=== PATIENT | female | born 1965 | race Caucasian/White ===

== ENCOUNTER 2017-01-28 17:22 | Inpatient (IN) | payer OTHER ==
[~2017-01-28] VITALS: Ht 160 cm; Wt 65.8 kg
[~2017-01-28 17:22] MED LIST: BACL10TA4 PO; CLIN-187 PO; HYDR2TAB6 PO; LAC PO; LORA-476 PO; OXYC40TE66 PO; [UNRECOGNIZED DRUG - CODE] SC
[2017-01-28 17:31] VITALS: BP 118/76
[2017-01-28 18:00] LABS: APPEARANCE,URINE HAZY (CLEAR); BILIRUBIN,URINE 1+ (NEGATIVE); BLOOD, URINE 1+ (NEGATIVE); LEUKOCYTE ESTERASE ,URINE 1+ (NEGATIVE); NITRITE, URINE NEGATIVE (NEGATIVE); PH,URINE 8.5 (5.0-9.0); UGLUCOSE NEGATIVE (NEGATIVE)
--- NOTE | 2017-01-28 18:00 | NUR ---
51/F BIB MOTHER PRESENT TO ER C/O ABDOMINAL PAIN x TODAY @ 0630. PT HAS N/V BUT DENIES DIARRHEA OR CONSTIPATION. PAIN 10/10 SHARP RLQ RADIATING TO UMBILICAL AREA. SKIN IS PINK/WARM/DRY; AOX4 WITH EVEN AND STEADY GAIT; RR ARE EVEN AND UNLABORED; VSS; PATIENT POSITIONED FOR COMFORT; HOB ELEVATED; BED DOWN. ER MD MADE AWARE OF PT STATUS.
[2017-01-28 18:02] LABS: COLOR,URINE YELLOW (YELLOW)
[2017-01-28 18:02] LABS: BASOPHILS # (AUTO) 0.3 K/uL (0.00-0.22); HEMATOCRIT 43.5 % (36-48); HEMOGLOBIN 14.8 g/dL (12.0-16.0); LYMPHOCYTES # (AUTO) 1.1 K/uL (2.5-16.5); MEAN CORPUSCULAR HEMOGLOBIN 31 pg (27-31); MEAN CORPUSCULAR HGB CONC 34 g/dL (33-37); MEAN CORPUSCULAR VOLUME 91 fL (80-94); MONOCYTES # (AUTO) 0.3 K/uL (0.8-1.0); NEUTROPHILS # (AUTO) 7.4 K/uL (1.8-7.7); PLATELET COUNT (AUTO) 257 K/uL (140-450); RED CELL DISTRIBUTION WIDTH 12.8 % (11.6-13.7); WHITE BLOOD COUNT (AUTO) 9.1 K/uL (4.8-10.8)
[2017-01-28 18:11] LABS: RBC,URINE 0-5 (RARE) /HPF (0-5)
[2017-01-28 18:12] LABS: ANION GAP 12.9 (8-16); CARBON DIOXIDE 25.5 mmol/L (21-32); CREATININE 1.1 mg/dL (0.6-1.3); POTASSIUM 4.4 mmol/L (3.5-5.1)
[2017-01-28 18:18] LABS: ALBUMIN 4.3 g/dL (3.4-5.0)
[2017-01-28] MEDS ORDERED: MORPHINE SULFATE 4 MG/ML SYR IVP ONE ×3 (18:35→22:55)
[2017-01-28] MEDS ORDERED: ONDANSETRON 4 MG/2 ML VIAL IVP ONE (18:35)
[2017-01-28] MEDS ORDERED: NACL 0.9% 1,000 ML IV ONE (18:35)
--- NOTE | 2017-01-28 19:18 | NUR ---
Pt report given to Raissa VENTURA. Transfer of care at this time.
--- NOTE | 2017-01-28 19:20 | NUR ---
RECEIVED REPORT FROM AM SHIFT, PT IS AOX4, VSS, NO S/S OF DISTRESS, C/O ABDOMINAL PAIN 8/10W, RASHES ON LEFT HAND, ER MD MADE AWARE, WILL CONTINUE TO MONITOR.
[2017-01-28] MEDS ORDERED: diphenhydrAMINE 50 MG/ML VIAL IVP ONE ×2 (19:40→23:10)
--- NOTE | 2017-01-28 20:43 | NUR ---
Patient being taken to US via wheelchair per tech.
--- NOTE | 2017-01-28 21:24 | NUR ---
Patient back from US via wheelchair per tech.
[2017-01-29] VITALS (7 sets, daily range): BP systolic 102–130; BP diastolic 71–90
--- NOTE | 2017-01-29 00:15 | NUR ---
REPORT GIVEN TO LORENZO BRISCOE, PT WILL TRANSFER TO ROOM 111B.
--- NOTE | 2017-01-29 00:30 | NUR ---
PT ARRIVED VIA GURNEY FROM ER. PT IS AAOX4, ON ROOM AIR. BELONGINGS WITH HER AT THE BEDSIDE. IV ACCESS IS PATENT AND ASYMPTOMATIC. AMBULATORY WITH BATHROOM PRIVILEGES. NO SIGNS OF ACUTE DISTRESS. PLAN OF CARE DISCUSSED, PT VERBALIZED UNDERSTANDING. BED ON LOW POSITION, BILATERAL HALF SIDE RAILS UP, CALL LIGHT WITHIN REACH, WILL CONTINUE TO MONITOR.
--- NOTE | 2017-01-29 01:45 | NUR ---
DR. SKAGGS PAGED TO ASK FOR NEW MEDICATION ORDERS. PT CURRENTLY HAS NO PENDING OR ACTIVE ORDERS. WILL AWAIT CALLBACK.
--- NOTE | 2017-01-29 01:55 | NUR ---
DR. SOL CALLED BACK. PER DR SOL NEW ORDERS FOLLOWS: NPO, DILAUDID 1 MG Q4H PRN, BENADRYL 25 MG Q6H PRN, RADIOLOGY TO DRAIN LYMPHOCELE, NO SCD NEEDED. NOTED, WILL CARRY OUT.
[2017-01-29] MEDS: HYDROmorphone 1 MG/ML AMP IVP PRN ×5 (02:50→19:42)
--- NOTE | 2017-01-29 04:10 | NUR ---
PT IS AWAKE, RESTING IN BED. NO SIGNS OF ACUTE DISTRESS, BED ON LOW POSITION, BILATERAL HALF SIDE RAILS UP, CALL LIGHT WITHIN REACH, WILL CONTINUE TO MONITOR.
--- NOTE | 2017-01-29 05:50 | NUR ---
PT IS AWAKE, RESTING IN BED. BED ON LOW POSITION, BILATERAL HALF SIDE RAILS UP, CALL LIGHT WITHIN REACH, WILL CONTINUE TO MONITOR.
--- NOTE | 2017-01-29 06:30 | NUR ---
DR SOL CALLED BACK. NEW ORDERS RECEIVED. D51/2NS 65 ML/HR, LABS. NOTED, WILL CARRY OUT.
[2017-01-29] MEDS: DEXT 5% / NACL 0.45% 1,000 ML IV SCH ×2 (06:50→22:14)
--- NOTE | 2017-01-29 07:00 | NUR ---
PATIENT HAS BEEN SCREENED AND CATEGORIZED LOW NUTRITION RISK. PATIENT WILL BE SEEN WITHIN 7 DAYS OF ADMISSION. 02/03/17 ABHI FLEMING MS, RDN
--- NOTE | 2017-01-29 07:35 | NUR ---
ENDORSED PT TO AM NURSE. PT IN STABLE CONDITION.
--- NOTE | 2017-01-29 07:40 | NUR ---
RECEIVED PT REPORT AT BEDSIDE FROM NIGHT NURSE. PT IS AAOX4 AND SHOWS NO S/S OF ACUTE DISTRESS ON ROOM AIR. PT SKIN IS INTACT. IV NOTED ON THE L AC WITH IVF'S INFUSING WELL. PT STATES SHE WAS ALREADY GIVEN PAIN MEDICATION THAT WAS EFFECTIVE. ON TELE MONITOR. PT WAS EXPLAINED POC FOR TODAY AND VERBALIZED UNDERSTANDING. THE BED IS IN LOW POSITION WITH CALL LIGHT WITHIN REACH. WILL CONTINUE TO MONITOR.
[2017-01-29 08:12] LABS: HEMATOCRIT 40.7 % (36-48); HEMOGLOBIN 13.4 g/dL (12.0-16.0); MEAN CORPUSCULAR HEMOGLOBIN 31 pg (27-31); MEAN CORPUSCULAR HGB CONC 33 g/dL (33-37); MEAN CORPUSCULAR VOLUME 93 fL (80-94); PLATELET COUNT (AUTO) 208 K/uL (140-450); RED BLOOD CELL COUNT(AUTO) 4.36 MIL/uL (4.20-5.40); RED CELL DISTRIBUTION WIDTH 12.8 % (11.6-13.7); WHITE BLOOD COUNT (AUTO) 14.4 K/uL (4.8-10.8)
[2017-01-29 08:20] LABS: PROTHROMBIN TIME 10.6 secs (10.8-13.4)
[2017-01-29 08:23] LABS: LYMPHOCYTES % (MANUAL) 10 % (20-46); MONOCYTES % (MANUAL) 4 % (5-12)
[2017-01-29] MEDS ORDERED: LORazepam 1 MG TAB PO SCH (09:50)
[2017-01-29] MEDS ORDERED: oxyCODONE 40 MG TABER PO PRN (09:50)
[2017-01-29] MEDS: diphenhydrAMINE 50 MG/ML VIAL IVP PRN (09:51)
[2017-01-29] MEDS: ONDANSETRON 4 MG/2 ML VIAL IVP PRN ×2 (09:57→15:48)
--- NOTE | 2017-01-29 10:00 | NUR ---
ADMINISTERED PRN MEDICATIONS FOR ITCHINESS AND NAUSEA. PT TOLERATED WELL IVF'S INFUSING. BED IS LOW POSITION WITH CALL LIGHT WITHIN REACH. ALL NEEDS MET AT THIS TIME.
[2017-01-29] MEDS ORDERED: LORazepam 1 MG TAB PO PRN (11:05)
[2017-01-29] MEDS: PIPER/TAZO 3.375GM/D5W PREMIX 50 ML IV SCH ×3 (11:15→23:47)
--- NOTE | 2017-01-29 11:25 | NUR ---
ADMINISTERED SCHEDULED MEDICATIONS AND PRN PAIN MEDICATION DILAUDID 1 MG IVP FOR RLQ ABD PAIN. WILL REASSESS FOR PAIN IN 30 MIN.
[2017-01-29] MEDS: metroNIDAZOLE 500 MG TAB PO SCH ×2 (12:44→18:17)
--- NOTE | 2017-01-29 13:30 | NUR ---
PT WATCHING TV AND SHOWS NO S/S OF ACUTE DISTRESS AT THIS TIME. WILL CONTINUE TO MONITOR.
--- NOTE | 2017-01-29 15:25 | NUR ---
ADMINISTERED DILAUDID 1 MG IVP FOR 8/10 RLQ ABD PAIN. WILL REASSESS IN 30 MIN.
--- NOTE | 2017-01-29 15:55 | NUR ---
PT STATES TOLERABLE PAIN OF 6/10 ABD PAIN. PT'S NEED MET AT THIS TIME. WILL CONTINUE TO MONITOR.
--- NOTE | 2017-01-29 18:00 | NUR ---
ADMINISTERED SCHEDULED MEDICATIONS. PT TOLERATED WELL. IV ABX INFUSING WELL. BED IN LOW POSITION WITH CALL LIGHT WITHIN REACH. PT C/O PAIN AND ASKED FOR NEXT AVAILABLE TIME FOR PRN PAIN MEDICATION. PT IS AWARE NEXT DOSE AT 1925.
--- NOTE | 2017-01-29 19:20 | NUR ---
GAVE PT REPORT AT BEDSIDE TO NIGHT NURSE. PT ENDORSED IN STABLE CONDITION
--- NOTE | 2017-01-29 19:40 | NUR ---
RECEIVED PT IN STABLE CONDITION FROM AM NURSE FOR CONTINUITY OF CARE. AWAKE,ALERT AND ORIENTED X4. ON TELE MONITOR-SR. AMBULATORY. WITH IVF INFUSING WELL ON THE LT AC #20. CLEAR AND PATENT. PLAN OF CARE DISCUSSED AND VERBALIZED UNDERSTANDING. WITH C/O LOWER ABDOMINAL PAIN. WILL MEDICATE ORDERED. CALL LIGHT PLACED WITHIN EASY REACH. WILL CONTINUE TO MONITOR.
--- NOTE | 2017-01-29 20:12 | NUR ---
PT SAID SHE FEELS OK RIGHT NOW AFTER THE PAIN MEDICATION GIVEN EARLIER. WILL CONTINUE TO MONITOR.
[2017-01-29] MEDS: DOXYCYCLINE 100 MG CAP PO SCH (21:00)
--- NOTE | 2017-01-29 21:00 | NUR ---
AWAKE, NO C/O ANY PAIN AT THIS TIME. VIBRAMYCIN PO NOT GIVEN FOR SHE SIAD SHE MIGHT VOMIT. WILL TRY LATER WHEN READY AND NOT NAUSEATED.
--- NOTE | 2017-01-29 23:00 | NUR ---
MADE ROUNDS. STILL AWAKE. DENIES ANY DISCOMFORT/PAIN NOTED. WILL CONTINUE TO MONITOR.
--- NOTE | 2017-01-30 00:30 | NUR ---
STILL KEPT NPO ORDERED. IVF INFUSING WELL.
--- NOTE | 2017-01-30 02:02 | NUR ---
MADE ROUNDS. AWAKE. SHE SAID PAIN IS BETTER. WILL CONTINUE TO MONITOR. Addendum: 01/31/17 at 0202 by Johanny Peralta RN CANCEL ABOVE NOTES. CAREGIVER MISTAKE.
--- NOTE | 2017-01-30 02:20 | NUR ---
MADE ROUNDS. PT IS SLEEPING WELL. NO S/S OF ANY DISCOMFORT NOTED.
[2017-01-30 02:36] VITALS: BP 104/71
[2017-01-30] MEDS: HYDROmorphone 1 MG/ML AMP IVP PRN ×5 (02:38→22:32)
[2017-01-30] MEDS: diphenhydrAMINE 50 MG/ML VIAL IVP PRN ×2 (04:08→19:44)
--- NOTE | 2017-01-30 04:08 | NUR ---
C/O ITCHING MOSTLY ON BOTH ARMS. . MEDICATED WITH BENADRYL IVP ORDERED.
[2017-01-30] MEDS: PIPER/TAZO 3.375GM/D5W PREMIX 50 ML IV SCH ×4 (05:36→23:34)
[2017-01-30] MEDS: DEXT 5% / NACL 0.45% 1,000 ML IV SCH ×3 (05:36→23:38)
--- NOTE | 2017-01-30 06:00 | NUR ---
BLOOD WAS DRAWN THIS AM. WILL FOLLOW UP RESULT.
[2017-01-30 06:14] LABS: BASOPHILS # (AUTO) 0.4 K/uL (0.00-0.22); BASOPHILS % (AUTO) 4.7 % (0.0-2.0); EOSINOPHILS # (AUTO) 0.1 K/uL (0-0.4); EOSINOPHILS % (AUTO) 1.5 % (0.0-4.0); HEMOGLOBIN 11.9 g/dL (12.0-16.0); LYMPHOCYTES # (AUTO) 2.2 K/uL (2.5-16.5); LYMPHOCYTES % (AUTO) 26.7 % (20.5-51.1); MEAN CORPUSCULAR HEMOGLOBIN 31 pg (27-31); MEAN CORPUSCULAR HGB CONC 33 g/dL (33-37); MEAN CORPUSCULAR VOLUME 93 fL (80-94); MONOCYTES # (AUTO) 0.8 K/uL (0.8-1.0); MONOCYTES % (AUTO) 9.1 % (1.7-9.3); NEUTROPHILS # (AUTO) 4.8 K/uL (1.8-7.7); PLATELET COUNT (AUTO) 181 K/uL (140-450); RED BLOOD CELL COUNT(AUTO) 3.87 MIL/uL (4.20-5.40); RED CELL DISTRIBUTION WIDTH 12.6 % (11.6-13.7); WHITE BLOOD COUNT (AUTO) 8.3 K/uL (4.8-10.8)
[2017-01-30 06:58] LABS: ANION GAP 8.4 (8-16); CARBON DIOXIDE 27.1 mmol/L (21-32); CREATININE 1.1 mg/dL (0.6-1.3); POTASSIUM 3.5 mmol/L (3.5-5.1); TOTAL BILIRUBIN 0.8 mg/dL (0.0-1.0)
--- NOTE | 2017-01-30 07:22 | NUR ---
ENDORSED PT IN STABLE CONDITION TO AM NURSE FOR CONTINUITY OF CARE.
--- NOTE | 2017-01-30 07:25 | NUR ---
RECEIVED PT REPORT AT BEDSIDE FROM NIGHT NURSE. PT IS AAOX4 AND SHOWS NO S/S OF ACUTE DISTRESS ON ROOM AIR. PT SKIN IS INTACT. IV NOTED ON THE L AC SL AND R FA WITH IVF'S INFUSING WELL. PT STATES 7/10 ABD PAIN HOWEVER BP WAS LOW AT 92/55 HR 90 WILL REASSESS. PT AWARE UNABLE TO GIVE PRN PAIN MEDICATION AT THIS TIME. ON TELE MONITOR. PT WAS EXPLAINED POC FOR TODAY AND VERBALIZED UNDERSTANDING. THE BED IS IN LOW POSITION WITH CALL LIGHT WITHIN REACH. WILL CONTINUE TO MONITOR.
[2017-01-30 08:00] VITALS: BP 92/55
--- NOTE | 2017-01-30 09:30 | NUR ---
PT BP IS 108/75 HR 75. PT DENIES SOB, DIZZINESS, AND FATIGUE. PT CONTINUE TO ASK FOR PAIN MEDICATIONS. WILL ADMINISTER PRN PAIN MEDICATION DILAUDID 1 MG IVP.
[2017-01-30] MEDS: DOXYCYCLINE 100 MG CAP PO SCH ×2 (09:48→20:41)
[2017-01-30] MEDS: metroNIDAZOLE 500 MG TAB PO SCH ×3 (09:48→16:38)
[2017-01-30] MEDS: ONDANSETRON 4 MG/2 ML VIAL IVP PRN ×2 (09:48→16:38)
--- NOTE | 2017-01-30 09:55 | NUR ---
ADMINISTERED SCHEDULED MEDICATIONS WELL PRN MEDICATIONS FOR NAUSEA AND PAIN. PT C/O NAUSEA AND RLQ ABD PAIN 10/25. WILL REASSESS IN 30 MIN.
[2017-01-30] MEDS: ENOXAPARIN 40 MG/0.4 ML SYR SUBQ SCH (10:01)
--- NOTE | 2017-01-30 10:34 | NUR ---
PT STATES TOLERABLE PAIN OF 6/10 AT THE RLQ ABD. PT'S NEEDS MET AT THIS TIME. WILL CONTINUE TO MONITOR.
[2017-01-30 12:00] VITALS: BP 103/70
--- NOTE | 2017-01-30 12:09 | NUR ---
ADMINISTERED SCHEDULED MEDICATIONS. PT TOLERATED WELL. IV ABX INFUSING WELL. ALL NEEDS MET AT THIS TIME. WILL CONTINUE TO MONITOR.
[2017-01-30 16:00] VITALS: BP 99/66
--- NOTE | 2017-01-30 17:00 | NUR ---
PT SEEN BY DR POOL
--- NOTE | 2017-01-30 18:15 | NUR ---
ADMINISTERED SCHEDULED MEDICATIONS AND DILAUDID 1 MG IVP FOR 8/10 RLQ ABD PAIN. WILL REASSESS IN 30 MIN.
--- NOTE | 2017-01-30 18:45 | NUR ---
PT STATES TOLERABLE PAIN OF 6/10 RLQ PAIN.
--- NOTE | 2017-01-30 19:10 | NUR ---
GAVE REPORT TO NIGHT NURSE AT BEDSIDE. PT ENDORSED IN STABLE CONDITION.
--- NOTE | 2017-01-30 19:20 | NUR ---
RECEIVED PT IN STABLE CONDITION FROM AM NURSE. AWAKE, ALERT AND ORIENTED X4. MED SURG PT. WITH NO DISTRESS NOTED. FAMILY MEMBERS AT BEDSIDE. NO C/O PAIN NOTED AT THIS TIME. HAS IVF INFUSING WELL ON THE RT FA#22, CLEAR AND PATENT. PLAN OF CARE DISCUSSED AND VERBALIZED UNDERSTANDING. CALL LIGHT PLACED WITHIN EASY REACH. WILL CONTINUE TO MONITOR.
--- NOTE | 2017-01-30 19:44 | NUR ---
C/O ITCHING ALL OVER THE BODY. BENADRYL IVP GIVEN ORDERED ,PRN. WILL CONTINUE TO MONITOR.
--- NOTE | 2017-01-30 20:41 | NUR ---
TOOK PO VIBRAMYCIN ORDERED. NO C/O PAIN AT THIS TIME.
[2017-01-30 22:29] VITALS: BP 105/75
--- NOTE | 2017-01-30 22:35 | NUR ---
C/O ABDOMINAL PAIN. MEDICATED ORDERED. WILL CONTINUE TO MONITOR.
--- NOTE | 2017-01-30 23:05 | NUR ---
AWAKE,PT SAID PAIN IS BETTER. IT IS NOW TOLERABLE. WILL CONTINUE TO MONITOR.
[2017-01-31] VITALS: BP 101/68
--- NOTE | 2017-01-31 02:00 | NUR ---
MADE ROUNDS . PT IS ASLEEP. NO S/S OF ANY DISCOMFORT NOR PAIN NOTED.
[2017-01-31 03:01] VITALS: BP 104/85
[2017-01-31] MEDS: HYDROmorphone 1 MG/ML AMP IVP PRN ×5 (03:03→21:00)
--- NOTE | 2017-01-31 04:10 | NUR ---
ASLEEP . WITH NO S/S DISCOMFORT NOR PAIN NOTED. WILL CONTINUE TO MONITOR.
[2017-01-31] MEDS: DEXT 5% / NACL 0.45% 1,000 ML IV SCH ×2 (05:02→20:26)
[2017-01-31] MEDS: PIPER/TAZO 3.375GM/D5W PREMIX 50 ML IV SCH ×4 (05:21→23:07)
[2017-01-31] MEDS: diphenhydrAMINE 50 MG/ML VIAL IVP PRN ×2 (06:06→18:55)
--- NOTE | 2017-01-31 06:06 | NUR ---
C/O ITCHING AGAIN . MEDICATED ORDERED. WILL CONTINUE TO MONITOR.
[2017-01-31 06:16] LABS: ANION GAP 9.7 (8-16); CARBON DIOXIDE 26.9 mmol/L (21-32); CREATININE 1.2 mg/dL (0.6-1.3); POTASSIUM 3.6 mmol/L (3.5-5.1)
[2017-01-31 06:29] LABS: HEMATOCRIT 36.2 % (36-48); HEMOGLOBIN 11.8 g/dL (12.0-16.0); MEAN CORPUSCULAR HEMOGLOBIN 31 pg (27-31); MEAN CORPUSCULAR HGB CONC 33 g/dL (33-37); MEAN CORPUSCULAR VOLUME 94 fL (80-94); PLATELET COUNT (AUTO) 169 K/uL (140-450); RED BLOOD CELL COUNT(AUTO) 3.86 MIL/uL (4.20-5.40); RED CELL DISTRIBUTION WIDTH 12.7 % (11.6-13.7); WHITE BLOOD COUNT (AUTO) 5.9 K/uL (4.8-10.8)
--- NOTE | 2017-01-31 07:25 | NUR ---
ENDORSED PT IN STABLE CONDITION TO AM NURSE FOR CONTINUITY OF CARE.
--- NOTE | 2017-01-31 07:30 | NUR ---
RECEIVED REPORT FROM REAL ESTATE MANAGER NURSE, PT IS RESTING IN BED, SEMI FOWLERS POSITION, A/OX4, AMBULATORY, PT HAS IV ON THE RIGHT FA, PATENT, INTACT, FLUSHING WELL, SKIN IS INTACT, NO S/S OF RESPIRATORY DISTRESS OR DISCOMFORT NOTED, DISCUSSED PLAN OF CARE WITH PT, PT VERBALIZED UNDERSTANDING, SAFETY/FALL PRECAUTIONS ARE IN PLACE, CALL LIGHT IS WITHIN REACH, WILL CONTINUE TO MONITOR.
[2017-01-31 07:34] LABS: EOSINOPHILS % (MANUAL) 1 % (0-4); LYMPHOCYTES % (MANUAL) 31 % (20-46); MONOCYTES % (MANUAL) 3 % (5-12)
[2017-01-31 08:00] VITALS: BP 97/60
[2017-01-31] MEDS: metroNIDAZOLE 500 MG TAB PO SCH ×3 (08:43→17:05)
[2017-01-31] MEDS: DOXYCYCLINE 100 MG CAP PO SCH ×2 (08:44→21:00)
[2017-01-31] MEDS: ENOXAPARIN 40 MG/0.4 ML SYR SUBQ SCH (08:52)
--- NOTE | 2017-01-31 08:52 | NUR ---
DUE MEDICATIONS GIVEN, PT TOLERATED WELL, ALL NEEDS ARE MET AT THIS TIME, CALL LIGHT IS WITHIN REACH.
--- NOTE | 2017-01-31 09:30 | NUR ---
DR. SKAGGS AT PATIENT'S BEDSIDE TALKING WITH PT.
[2017-01-31] MEDS: ONDANSETRON 4 MG/2 ML VIAL IVP PRN (09:46)
--- NOTE | 2017-01-31 11:48 | NUR ---
CM NOTE INITIAL REVIEW FAXED TO [facility] / FAX# [phone], ATTN: KEITH #[phone]
--- NOTE | 2017-01-31 12:14 | NUR ---
PT RESTING IN BED, DUE MEDICATION GIVEN, CALL LIGHT WITHIN REACH.
--- NOTE | 2017-01-31 14:35 | NUR ---
PT IN THE SHOWERS AT THIS TIME.
--- NOTE | 2017-01-31 15:10 | NUR ---
PATIENT IS RESTING IN BED AT THIS TIME, ALL NEEDS ARE MET, CALL LIGHT WITHIN REACH.
[2017-01-31 16:00] VITALS: BP 104/68
--- NOTE | 2017-01-31 16:37 | NUR ---
CM NOTE SPOKE W/ AB GILL FOR [facility] ([phone] [id number]) RE. POSSIBLE TRANSFER TO HIGHER LEVEL OF CARE. UPON HER REVIEW AND IF THIS IS NOT AN EMERGENT TRANSFER, SHE RECOMMENDS PATIENT TO FOLLOW UP OUTPATIENT. PATIENT ALREADY FOLLOWS UP W/ SCARLETT COLLINS AND DOES CA TREATMENT & PAIN MANAGEMENT AT [facility]. MADE CM AWARE THAT JESUS WILL BE CM TOMORROW. SCOT VALLAADRES MADE AWARE OF INSURANCE'S DECISION.
--- NOTE | 2017-01-31 17:05 | NUR ---
DUE MEDICATIONS GIVEN, PT COMPLAINED OF A 8/10 ABDOMINAL PAIN. WILL MEDICATE WITH PRN PAIN MEDICATION AT THIS TIME.
--- NOTE | 2017-01-31 19:20 | NUR ---
ENDORSED PT TO FIBERGLASS LAMINATOR NURSE FOR CONTINUITY OF CARE, PT STABLE AT THIS TIME.
--- NOTE | 2017-01-31 19:22 | NUR ---
RECEIVED PT ON BED, AAOX4, DENIES ANY PAIN, NO N/V NOTED, IVF INFUSING WELL, PLAN OF CARE DISCUSSED, AWARE OF TRANSFER TO HIGHER LEVEL OF CARE, OSTEOPATHIC PHYSICIAN TO ARRANGED, CALL LIGHT WITHIN REACH.
--- NOTE | 2017-01-31 21:00 | NUR ---
MEDICATED PRN FOR PAIN WITH DILAUDID IVP, DUE PO MEDICATION GIVEN, ALL NEEDS ATTENDED.
[2017-02-01] VITALS: BP 98/60
--- NOTE | 2017-02-01 | NUR ---
PT SLEEPING, EASILY AROUSABLE, DENIES ANY PAIN, IV ANTIBIOTIC INFUSING WELL, CONTINUE TO MONITOR CLOSELY.
--- NOTE | 2017-02-01 01:00 | NUR ---
PT AWAKE ASKING FOR PAIN MEDICATION, RECHECKED BP-90/61, TOO LOW TO GIVE DILAUDID AT THIS TIME, VERBALIZED UNDERSTANDING, WILL RECHECKED BP IN 30 MINUTES, MONITORED CLOSELY.
--- NOTE | 2017-02-01 01:30 | NUR ---
BP RECHECKED-92/58, STILL TOO LOW FOR DILAUDID TO GIVE, VERBALIZED UNDERSTANDING, WILL MONITOR CLOSELY.
[2017-02-01] MEDS: ONDANSETRON 4 MG/2 ML VIAL IVP PRN ×3 (02:26→21:19)
--- NOTE | 2017-02-01 02:35 | NUR ---
PT COMPLAINING OF NAUSEA, NO VOMITING NOTED, MEDICATED WITH ZOFRAN IVP, MONITORED CLOSELY.
--- NOTE | 2017-02-01 03:08 | NUR ---
PT SLEEPING, NO DISTRESS NOTED, REPORT GIVEN TO RN SALVATORE FOR CONTINUITY OF CARE.
--- NOTE | 2017-02-01 03:10 | NUR ---
RECEIVED FROM PREVIOUS RN AWAKE AT THIS TIME. RE-ORIENTED TO NEW NURSE ASSIGNMENT. A/O X 4. ROM X 4. SEEN INDEPENDENTLY WALKED BACK FROM RESTROOM TO GO URINATE. RE-ORIENTED TO CALL LIGHT FOR ANY HELP SHE MAY NEED. NO SOB AND NO PAIN COMPLAINTS WITH ME AT THIS TIME. IVF SITE PATENT AND NO INFILTRATION.
--- NOTE | 2017-02-01 04:05 | NUR ---
SLEEPING AT THIS TIME. CALL LIGHT WITH IN REACH.
[2017-02-01] MEDS: DEXT 5% / NACL 0.45% 1,000 ML IV SCH (05:20)
[2017-02-01 05:30] VITALS: BP 98/68
[2017-02-01] MEDS: PIPER/TAZO 3.375GM/D5W PREMIX 50 ML IV SCH ×3 (05:35→17:09)
--- NOTE | 2017-02-01 06:49 | NUR ---
AWAKE AT THIS TIME. VITAL SIGNS WNL. WENT TO RESTROOM . INDEPENDENT. AFEBRILE. PAIN TOLERABLE PER PT. A/O X 4. ROM X 4. CLEAR SPEECH. FOR TRANSFER PLANS TO HIGHER LEVEL OF CARE.
--- NOTE | 2017-02-01 07:28 | NUR ---
RECEIVED PT IN BED ASLEEP. AROUSABLE TO VOICE. ALERT ORIENTEDX4. NO SOB NOTED. PT COMPLAINED OF ABDOMINAL PAIN. WILL CHECK VITAL SIGNS AND MEDICATE ORDERED. PT AMBULATORY. SAFETY PRECAUTION IN PLACE. CALL LIGHT WITHIN TEACH.
--- NOTE | 2017-02-01 07:31 | NUR ---
ENDORSED TO THE NEXT RN FOR CONTINUITY OF CARE. AWAKE AND ALERT. NO SOB. DENIES PAIN . ABLE TO VERBALIZE NEEDS WELL.
[2017-02-01 07:48] VITALS: BP 103/60
[2017-02-01] MEDS: metroNIDAZOLE 500 MG TAB PO SCH ×3 (08:19→16:26)
[2017-02-01] MEDS: DOXYCYCLINE 100 MG CAP PO SCH ×2 (08:19→20:49)
[2017-02-01] MEDS: HYDROmorphone 1 MG/ML AMP IVP PRN ×4 (08:20→20:49)
[2017-02-01] MEDS: ENOXAPARIN 40 MG/0.4 ML SYR SUBQ SCH (08:28)
--- NOTE | 2017-02-01 10:10 | NUR ---
CONCURRENT REVIEW FAXED TO [facility] [phone] PHONE JAIRO [phone] [id number] SPOKE WITH ABOUT TRANSFER. HE SAID THAT ACCORDING TO DR POOL PATIENT NEEDS HIGHER LEVEL OF CARE. DR. SKAGGS SAID THAT DR POOL WAS GOING TO SPEAK WITH A PHYSICIAN FROM [facility] THAT ALSO GOES TO [facility]. I SPOKE WITH JAIRO FROM [facility] [place] TOLD HER THAT DR. SKAGGS SAID IF PATIENT GOES TO [facility], [facility] COULD BE THE ADMITTING. I CALLED DR. OROZCO TO FIND OUT WHAT PHYSICIAN HE SPOKE WITH FROM [facility] THAT ALSO GOES TO [facility]. HE SAID HE DIDN'T REMEMBER THE NAME BUT WOULD CALL HIM WHEN HE GET TO HIS OFFICE. Addendum: 02/01/17 at 1358 by Cait Sanchez FAXED TO [facility].
[2017-02-01 10:24] LABS: BASOPHILS # (AUTO) 0.3 K/uL (0.00-0.22); BASOPHILS % (AUTO) 3.8 % (0.0-2.0); EOSINOPHILS # (AUTO) 0.1 K/uL (0-0.4); EOSINOPHILS % (AUTO) 1.5 % (0.0-4.0); HEMOGLOBIN 11.5 g/dL (12.0-16.0); LYMPHOCYTES # (AUTO) 1.2 K/uL (2.5-16.5); LYMPHOCYTES % (AUTO) 13.9 % (20.5-51.1); MEAN CORPUSCULAR HEMOGLOBIN 31 pg (27-31); MEAN CORPUSCULAR HGB CONC 33 g/dL (33-37); MEAN CORPUSCULAR VOLUME 93 fL (80-94); MONOCYTES # (AUTO) 0.5 K/uL (0.8-1.0); MONOCYTES % (AUTO) 6.1 % (1.7-9.3); NEUTROPHILS # (AUTO) 6.7 K/uL (1.8-7.7); NEUTROPHILS % (AUTO) 74.7 % (42.2-75.2); PLATELET COUNT (AUTO) 187 K/uL (140-450); RED BLOOD CELL COUNT(AUTO) 3.76 MIL/uL (4.20-5.40); RED CELL DISTRIBUTION WIDTH 13.2 % (11.6-13.7); WHITE BLOOD COUNT (AUTO) 8.8 K/uL (4.8-10.8)
[2017-02-01 12:00] VITALS: BP 100/73
--- NOTE | 2017-02-01 12:38 | NUR ---
PT IV LINE IS LEAKING. NO REDNESS OR INFILTRATION NOTED ON SITE BUT LEAKING WAS NOTED CLOSE TO IV CANNULA. PT REQUESTED TO REINSERT A NEW IV LINE AFTER SHE EATS HER LUNCH.
--- NOTE | 2017-02-01 13:00 | NUR ---
IV SITE CHECKED FOR PATENCY. IV LINE FLUSHED AND FLUSHING GOOD. NO LEAKING NOTED. CHANGED IV LINE TAPE. SECURED. STARTED IVF.
--- NOTE | 2017-02-01 13:58 | NUR ---
SPOKE WITH JAIRO PALACIOS FROM [facility]. SHE SAID THAT AT [facility], THEY HAVE A OB/GYNE ONCOLOGY SURGEON, DR. KELIN SMITH [phone]. ALSO THEIR HOSPITALIST AT [facility] IS DR. AVERY FOR ADMIT. I SPOKE WITH THE PATIENT AND SHE SAID THAT SHE SAW AN OB/GYNE IN WHO REFERRED HER TO THE [facility] IN [facility] FOR A PET SCAN. SHE SAID SHE NEVER WENT THERE, BECAUSE SHE BECAME ILL. THE NAME OF THE OF/GYNE IS DR. VIRI HEARN. I SPOKE WITH JAIRO FROM [facility] AND SHE SAID SHE WILL CALL DR. SKAGGS AND SEE IF HE COULD CALL THE HOSPITALIST, DR. AVERY TO SEE IF SHE WOULD ACCEPT THE PATIENT FOR TRANSFER AND THEM TO GET THE PROPER CONSULT THERE.
--- NOTE | 2017-02-01 14:38 | NUR ---
CLARIFIED WITH DR. SKAGGS REGARDING ORDERED US GUIDED DRAINAGE FOR TODAY, PER RADIOLOGY DEPT, THAT WAS ALREADY ORDERED LAST JAN 28, 2017 BUT WASN'T ABLE TO DO PROCEDURE DUE TO BOWEL/INTESTINE SURROUNDING AREA OF CONCER. RECEIVED ORDER FROM DR. SKAGGS TO CANCEL ORDER. AND CLARIFIED REGARDING ORDER FOR US PELVIC TRANSVAGINAL NON OB, PER RADIOLOGY DEPT IT WAS ALREADY DONE LAST JAN 28, 2017, PER DR. SKAGGS HE WANTS A NEW ONE. CALLED RADIOLOGY DEPT SPOKE WITH ANITRA AND MADE AWARE. RADIOLOGY DEPT STAFF WILL COME AND SEE PT.
--- NOTE | 2017-02-01 15:22 | NUR ---
SPOKE WITH JAIRO FROM [facility][phone] [id number]. SHE SAID SHE SPOKE WITH DR. SKAGGS AND HE WAS TO SPEAK WITH THE HOSPITALIST, DR. CHAVARRIA TO INFORM HER WHAT THIS PATIENT NEEDED. JAIRO GAVE ME THE AUTHS. AUTH FOR [facility] [id number]. THE AUTH FOR [facility] B[facility] TRANSFER IS [id number]. Addendum: 02/01/17 at 1541 by Cait Sanchez CM CALLED [facility] AND SPOKE WITH KARLIE IN ADMITTING. HE SAID THE PATIENT HAS BEEN ACCEPTED BY DR. CHAVARRIA, JUST WAITING FOR A BED. I GAVE HIM THE PHONE NUMBER TO THE FLOOR TO CALL WHEN THEY GET A BED.
[2017-02-01] MEDS ORDERED: DOXY100C12 PO (15:35)
[2017-02-01 16:00] VITALS: BP 104/62
--- NOTE | 2017-02-01 18:00 | NUR ---
EXPLAINED TO PT REGARDING TRANSFER TO HIGHER LEVEL OF CARE FOR FURTHER ASSESSMENT/TREATMENT. PT VERBALIZED UNDERSTANDING AND SIGNED PT TRANSFER ACKNOWLEDGEMENT FORM. FORM IN TO CHART.
--- NOTE | 2017-02-01 19:21 | NUR ---
AWAITING FOR BED AT [facility]. PT KEPT CLEAN, DRY AND COMFORTABLE. NEEDS ATTENDED. ENDORSED TO NEXT SHIFT, PT ON STABLE CONDITION, FOR CONTINUITY OF CARE.
--- NOTE | 2017-02-01 19:22 | NUR ---
RECEIVED PT FROM DAY NURSE, PT IS IN STABLE CONDITION. PT AAOX4, PT IS ON RA. IV TO R FA 22G PATENT AND INTACT. RESPIRATIONS ARE EVEN AND UNLABORED. BOWEL SOUNDS PRESENT. SKIN IS INTACT. INITIAL ASSESSMENT COMPLETED PLAN OF CARE DISCUSSED WITH PT. PT VERBALIZED UNDERSTANDING. ALL SAFETY PRECAUTIONS MET, CALL LIGHT WITHIN REACH, WILL CONTINUE TO MONITOR.
--- NOTE | 2017-02-01 21:19 | NUR ---
PT VOMITING, ZOFRAN GIVEN BY CHARGE NURSE ROSS
[2017-02-02] VITALS: BP 113/64
--- NOTE | 2017-02-02 | NUR ---
PT VS STABLE, NO S/S OF DISTRESS NOTED. ALL SAFETY PRECAUTIONS MET, CALL LIGHT WITHIN REACH, WILL CONTINUE TO MONITOR.
[2017-02-02] MEDS: PIPER/TAZO 3.375GM/D5W PREMIX 50 ML IV SCH ×4 (00:07→17:14)
[2017-02-02] MEDS: DEXT 5% / NACL 0.45% 1,000 ML IV SCH ×3 (01:41→20:01)
[2017-02-02] MEDS: diphenhydrAMINE 50 MG/ML VIAL IVP PRN (01:48)
[2017-02-02] MEDS: HYDROmorphone 1 MG/ML AMP IVP PRN ×5 (04:36→21:26)
[2017-02-02] MEDS: ONDANSETRON 4 MG/2 ML VIAL IVP PRN ×2 (04:49→17:12)
--- NOTE | 2017-02-02 05:00 | NUR ---
CALLED [facility] TO FOLLOW UP BED AVAILABILITY FOR TRANSFER, SPOKE TO MARYBETH AND SAID STILL NO BED AVAILABLE AT THIS TIME, LORENZO ROA MADE AWARE.
--- NOTE | 2017-02-02 07:20 | NUR ---
PT REPORT RECEIVED AT BEDSIDE. PT IS IN STABLE CONDITION. NO S/S OF DISTRESS NOTED. PT C/O PAIN AT LOWER ABD, 11/25. WILL MEDICATE. VITALS ARE STABLE. IV NOTED ON THE RIGHT FA #22. SKIN INTACT. BED LOWERED. PERSONAL ITEMS AND CALL LIGHT WITHIN REACH.
--- NOTE | 2017-02-02 07:26 | NUR ---
GAVE REPORT TO DAY NURSE AT BEDSIDE FOR CONTINUITY PT IN STABLE CONDITION, NO S/S OF DISTRESS NOTED.
[2017-02-02 08:06] VITALS: BP 122/75
[2017-02-02] MEDS: metroNIDAZOLE 500 MG TAB PO SCH ×3 (08:45→17:12)
[2017-02-02] MEDS: DOXYCYCLINE 100 MG CAP PO SCH ×2 (08:45→20:45)
[2017-02-02] MEDS: ENOXAPARIN 40 MG/0.4 ML SYR SUBQ SCH (08:50)
--- NOTE | 2017-02-02 08:58 | NUR ---
MEDICATION AND INSTRUCTION GIVEN. PT VERBALIZED UNDERSTANDING. WILL CONTINUE TO MONITOR.
--- NOTE | 2017-02-02 09:20 | NUR ---
[place] [facility] [phone] PHONE KEITH [phone] CALLED [facility] AND SPOKE WITH DAYANARA. NO BED YET. THEY HAVE THE PATIENT ON THE LIST.
--- NOTE | 2017-02-02 13:40 | NUR ---
PT RESTING IN BED. PT STATED SHE FELT BETTER THAN BEFORE. PAIN REDUCED TO 4/10. PT REQUESTED SODA.
--- NOTE | 2017-02-02 15:58 | NUR ---
SPOKE WITH KEITH FROM [facility]. SHE ALSO CALLED [facility] FOR A BED. AT PRESENT NO BEDS. I TOLD KEITH THAT IF A BED BECOMES AVAILABLE TO CALL THE FLOOR AT [phone].
[2017-02-02 16:00] VITALS: BP 110/70
--- NOTE | 2017-02-02 17:00 | NUR ---
PT FELT NAUSEATED AND VOMITED. WHITE EMESIS ABOUT 30ML. MEDICATED WITH ZOFRAN. WILL CONTINUE TO MONITOR.
--- NOTE | 2017-02-02 18:45 | NUR ---
PT VOMITED AFTER EATING DINNER. 100ML EMESIS WITH FOOD. CALLED DR. MARTINEZ WHO ORDERED REGLAN.
--- NOTE | 2017-02-02 19:16 | NUR ---
ENDORSED PT TO EFFICIENCY EXPERT, PT REPORT GIVEN AT BEDSIDE. PT IS IN STABLE CONDITION. NO S/S OF ACUTE DISTRESS NOTED.
--- NOTE | 2017-02-02 19:45 | NUR ---
RECEIVED PT IN STABLE CONDITION FROM AM NURSE. AWAKE,ALERT AND ORIENTED X4. MED SURG PT. AMBULATORY . WITH IVF INFUSING WELL ON THE RT FA #22. CLEAR AND PATENT. NO C/O PAIN AT THIS TIME. AWAITING FOR BED IN [facility] . PLAN OF CARE DISCUSSED AND VERBALIZED UNDERSTANDING. CALL LIGHT PLACED WITHIN EASY REACH. WILL CONTINUE TO MONITOR.
[2017-02-02] MEDS: METOCLOPRAMIDE 10 MG/2 ML INJ VIAL IVP PRN (20:07)
--- NOTE | 2017-02-02 20:07 | NUR ---
C/O NAUSEA. REGLAN IVP GIVEN ORDERED. WILL CONTINUE TO MONITOR.
[2017-02-02 21:24] VITALS: BP 116/71
--- NOTE | 2017-02-02 21:56 | NUR ---
MADE ROUNDS. AWAKE, SHE SAID NO MORE PAIN AT THIS TIME. WILL CONTINUE TO MONITOR.
[2017-02-03] VITALS: BP 101/68
--- NOTE | 2017-02-03 00:42 | NUR ---
PAGED DR. SKAGGS FOR RENEWAL ORDER OF ZOSYN IVPB AND VIBRAMYCIN AND FLAGYL PO . DR. MARTINEZ INFORMATION MANAGER. CALLED BACK AND SHE SAID OK TO RENEW.
--- NOTE | 2017-02-03 01:30 | NUR ---
STILL NO CALL FROM [facility] FOR ANY BED AVAILABILITY. WILL CONTINUE TO WAIT FOR BED.
--- NOTE | 2017-02-03 02:00 | NUR ---
MADE ROUNDS. PT IS ASLEEP AT THIS TIME. NO S/S OF ANY DISCOMFORT NOR PAIN NOTED .
--- NOTE | 2017-02-03 04:25 | NUR ---
MADE ROUNDS. ASLEEP WITH NO S/S OF ANY AIN OR DISCOMFORT NOTED. WILL CONTINUE TO MONITOR.
[2017-02-03] MEDS: PIPER/TAZO 3.375GM/D5W PREMIX 50 ML IV SCH ×2 (05:40→12:23)
[2017-02-03 05:52] VITALS: BP 128/75
[2017-02-03] MEDS: HYDROmorphone 1 MG/ML AMP IVP PRN ×5 (05:59→22:19)
[2017-02-03] MEDS: METOCLOPRAMIDE 10 MG/2 ML INJ VIAL IVP PRN ×2 (06:05→11:08)
--- NOTE | 2017-02-03 06:05 | NUR ---
PT VOMITED AGAIN .WITH WHITISH LIQUID. MEDICATED WITH REGLAN 1O MG IVP ORDERED PRN. WILL CONTINUE TO MONITOR.
[2017-02-03 06:49] LABS: HEMATOCRIT 36.2 % (36-48); HEMOGLOBIN 11.9 g/dL (12.0-16.0); MEAN CORPUSCULAR HEMOGLOBIN 31 pg (27-31); MEAN CORPUSCULAR HGB CONC 33 g/dL (33-37); MEAN CORPUSCULAR VOLUME 93 fL (80-94); PLATELET COUNT (AUTO) 176 K/uL (140-450); RED CELL DISTRIBUTION WIDTH 12.9 % (11.6-13.7); WHITE BLOOD COUNT (AUTO) 6.8 K/uL (4.8-10.8)
--- NOTE | 2017-02-03 07:20 | NUR ---
ENDORSED PT IN STABLE CONDITION TO AM NURSE FOR CONTINUITY OF CARE.
[2017-02-03 07:21] LABS: EOSINOPHILS % (MANUAL) 4 % (0-4); LYMPHOCYTES % (MANUAL) 34 % (20-46); MONOCYTES % (MANUAL) 10 % (5-12)
--- NOTE | 2017-02-03 07:34 | NUR ---
REPORT RECEIVED FROM PREVOCATIONAL/REHABILITATION COUNSELOR NURSE, PT AAOX4, RESP EVEN UNLABORED ON RA, SKIN WARM DRY COLOR WNL, PT DENIES PAIN OR DISCOMFORT OR NAUSEA AT THIS TIME, PLAN OF CARE REVIEWED, PT VERBALIZED FULL UNDERSTANDING, CALL CÁRDENAS WITHIN REACH, SIDE RAILS UP, BED LOCKED IN LOW POSITION, WILL CONTINUE TO MONITOR.
[2017-02-03 08:00] VITALS: BP 108/64
[2017-02-03] MEDS: metroNIDAZOLE 500 MG TAB PO SCH ×2 (09:00→12:26)
[2017-02-03] MEDS: ONDANSETRON 4 MG/2 ML VIAL IVP PRN ×2 (09:02→20:21)
[2017-02-03] MEDS: DOXYCYCLINE 100 MG CAP PO SCH ×2 (09:07→20:22)
[2017-02-03] MEDS: ENOXAPARIN 40 MG/0.4 ML SYR SUBQ SCH (09:09)
--- NOTE | 2017-02-03 09:13 | NUR ---
EMESIS X1, PRN ZOFRAN GIVEN AT THIS TIME, PT REPORTS MID RIGTH ABD PAIN /10, PT UNABLE TO TAKE PRN OXYCONTIN PO DUE TO N/V AT THIS TIME, LAST DOSE OF DILAUDID IV GIVEN AT 6AM, PT STATES PAIN IS TOLERABLE AT THIS TIME UNTIL NEXT DOSE OF DILAUDID CAN BE ADMINISTERED. ABD SOFT, TENDER TO PALP, NON DISTENDED, WILL CONTINUE TO MONTIOR.
[2017-02-03] MEDS: DEXT 5% / NACL 0.45% 1,000 ML IV SCH (10:32)
--- NOTE | 2017-02-03 11:13 | NUR ---
PT C/O NAUSEA/VOMITING AGAIN, EMESIS X1, PRN REGLAN GIVEN AT THIS TIME, WILL CONTINUE TO MONTIOR.
--- NOTE | 2017-02-03 11:50 | NUR ---
CM NOTE CONCURRENT REVIEW FAXED TO [facility] / FAX# [phone], ATTN: KEITH #[phone] PER KEITH PAUL WILL BE HAVING A BED AVAILABLE SOMETIME TODAY; UNKNOWN ETA AT THIS TIME.
[2017-02-03] MEDS ORDERED: PROCHLORPERAZINE 10 MG/2 ML VIAL IVP PRN (11:55)
--- NOTE | 2017-02-03 12:00 | NUR ---
PT WILL WITH NAUSEA AND VOMITING, EMESIS X2, NON BLOODY, PT KEEPS DRINKING SODA AND WATER WHILE NAUSEATED, PT ENCOURAGED TO HOLD PO INTAKE FOR NOW UNTIL NAUSEA SUBSIDES, DR SKAGGS PAGED, AND CALLED BACK, NOTIFIED OF MULTIPLE VOMITING THIS AM DESPITE 2 DOSES OF REGLAN, AND 1 DOSE OF ZOFRAN, DR SKAGGS MADE AWARE THAT PT CAN'T TOLERATE PO ANTIBIOTICS THIS AM, COMPAZINE ORDER RECEIVED, ALSO ORDER FOR BOOST WITH EACH MEAL RECOMMENDED BY NUTRITIONINST.
--- NOTE | 2017-02-03 13:20 | NUR ---
DR SKAGGS AT BEDSIDE
--- NOTE | 2017-02-03 13:40 | NUR ---
02/03/17 RD INITIAL ASSESSMENT COMPLETED PLEASE REFER TO NUTRITION ASSESSMENT UNDER CARE ACTIVITY FOR ESTIMATED NUTRITIONAL NEEDS. RD RECOMMENDATIONS: 1.CONTINUE REGULAR DIET MEDICALLY APPROPRIATE OR PER MD. -NOTE PT HAS BEEN NAUSEOUS AND VOMTING THE PAST 2 DAYS WITH VERY LITTLE TO NO PO INTAKE. 2. RECOMMEND ADDING BOOST PLUS TID WITH MEALS FOR ADDITIONAL KCAL AND PROTEIN REPLETION -NOTE EACH BOOST PLUS PROVIDES 360 KCAL AND 14 GM OF PROTEIN. 3. RD WILL F/U 2-3 DAYS; HIGH RISK. MONICA PETER, RD
--- NOTE | 2017-02-03 14:50 | NUR ---
PT STATES PAIN IS NOW SUBSIDED AND TOLERABLE, STATES NAUSEA HAS ALSO SUBSIDED, PT RESTING QUIETLY IN NAD, RESP EVEN UNLABORED, SKIN WARM DRY COLOR WNL, PT DENIES ANY IMMEDIATE NEEDS, TAKING SIPS OF LEMON SODA, [place] WELL. CALL CÁRDENAS WITHIN REACH, SIDE RAILS UP, WILL CONTINUE TO MONTIOR.
[2017-02-03 16:00] VITALS: BP 120/71
--- NOTE | 2017-02-03 17:05 | NUR ---
RIGHT FOREARM WITH SLIGHT SWELLING, STATES IV SITE IS TENDER TO TOUCH, NEW IV STARTED TO LEFT FOREARM 22G, PT [place] WELL, IVF CONTINUES. PT STATES SHE IS TILL SLIGHTLY NAUSEOUS BUT TOLERABLE, NO C/O PAIN, PT DENIES ANY OTHER NEEDS, WILL CONTINUE TO MONTIOR.
--- NOTE | 2017-02-03 19:25 | NUR ---
REPORT GIVEN TO DEVOPS CONSULTANT NURSE LESLEE RN, PT IN STABLE CONDITION.
--- NOTE | 2017-02-03 19:26 | NUR ---
RECEIVED PT FROM RALPH RN PT IS AAOX4 AMBULATORY IV ON LEFT FA INFUSIGN WELL DENIES ANY PAIN AT THIS TIME INITIAL ASSESSMENT DONE
[2017-02-03 20:00] VITALS: BP 114/74
--- NOTE | 2017-02-03 22:50 | NUR ---
AFTER PAIN MEDIC GIVEN PT SLEEPS QUIET , NOT DISTRESS NOTED IV ON LEFT FA INFUSING WELL
[2017-02-04 00:02] VITALS: BP 126/77
--- NOTE | 2017-02-04 01:00 | NUR ---
PT AMBULATES TO THE RESTROOM VOIDING WELL NOT DISTRESS NOTED REMAIN STABLE
--- NOTE | 2017-02-04 04:09 | NUR ---
SPONGE BATH GIVEN LINEN CHANGED AMBULATES T THE RESTROOM VOIDING WELL DENIES ANY PAIN OR DISCOMFORT AT THIS TIME.
[2017-02-04] MEDS: ONDANSETRON 4 MG/2 ML VIAL IVP PRN ×2 (05:03→11:12)
[2017-02-04] MEDS: HYDROmorphone 1 MG/ML AMP IVP PRN ×4 (05:06→16:54)
[2017-02-04] MEDS: DEXT 5% / NACL 0.45% 1,000 ML IV SCH (05:10)
--- NOTE | 2017-02-04 06:40 | NUR ---
AFTER PAIN MEDIC GIVING PT SLEEPING WELL NOT DISTRESS NOTED NOT N/V NOTED
--- NOTE | 2017-02-04 07:15 | NUR ---
RECEIVED REPORT FROM DIRECTOR COUNSELING BUREAU RN. PATIENT IS AAOX4, RESPIRATIONS ARE EVEN AND UNLABORED AND ON ROOM AIR. PATIENT DENIES ANY PAIN OR DISCOMFORT AT THIS TIME. D5NS INFUSING TO LEFT FOREARM 22G AT 65ML/HR, SITE IS CLEAN, DRY AND PATENT. NO SIGNS AND SYMPTOMS OF ACUTE DISTRESS NOTED AT THIS TIME. BED IS IN LOWEST POSITION, SIDERAILS UP X2, CALL LIGHT PLACED WITHIN REACH. WILL CONTINUE TO MONITOR.
[2017-02-04 08:00] VITALS: BP 114/86
[2017-02-04] MEDS: DOXYCYCLINE 100 MG CAP PO SCH (09:20)
[2017-02-04] MEDS: ENOXAPARIN 40 MG/0.4 ML SYR SUBQ SCH (09:33)
--- NOTE | 2017-02-04 10:00 | NUR ---
PATIENT CONTINUES TO HAVE VOMITING, GAVE DILAUDID EARLIER. NOT DUE FOR ZOFRAN YET, WHICH IS WHAT SHE PREFERS. WILL CONTINUE TO MONITOR.
--- NOTE | 2017-02-04 12:02 | NUR ---
FAXED [place] [facility] [place] [phone] PHONE KEITH [phone] CALLED [facility] AND SPOKE WITH DAYANARA, THEN CALLED LATER AND SPOKE WITH KARLIE. STILL NO BED.
--- NOTE | 2017-02-04 13:41 | NUR ---
CALLED [facility] AND SPOKE WITH KARLIE. STILL WAITING FOR BED. NO BED YET.
[2017-02-04] MEDS ORDERED: ACETAMINOPHEN 325 MG TAB PO PRN (14:10)
--- NOTE | 2017-02-04 14:11 | NUR ---
C/O HEADACHE NOTIFIED DR SKAGGS NEW ORDER CARRIED OUT.
--- NOTE | 2017-02-04 15:56 | NUR ---
I GOT A CALL FROM [facility] THAT BED IS AVAILABLE .PATIENT CAN GO TO ROOM 457B BUT THEY WANTED THE ACCEPTING DR TO CALL THEM FIRST. ACCORDING TO THE SUPERINTENDENT MAINTENANCE [employer] NOTE DR CHAVARRIA IS ACCEPTING DR. EMANUEL SKAGGS AT THIS TIME .
[2017-02-04 16:00] VITALS: BP 128/78
--- NOTE | 2017-02-04 17:10 | NUR ---
CALLED [facility] AND SPOKE WITH LORENZO NEWSOME. GAVE HER REPORT ON THE PATIENT.
--- NOTE | 2017-02-04 17:35 | NUR ---
[facility] HERE TO TRANSPORT PATIENT. GAVE THEM REPORT, PATIENT IS STABLE FOR TRANSPORTATION AT THIS TIME. ALL BELONGINGS ARE WITH HER, IV FLUID DISCONTINUED. IV CLEAN, DRY AND PATENT ON SALINE LOCK. TRANSPORTATION GOWN GIVEN TO PATIENT. ID BAND REMOVED.
== END 2017-02-04 17:35 | disposition short-term general hospital (02) | DRG 872 ==
LOC: MED 17:22 → MTU 23:21
PROVIDERS: ADMIT Hospitalist; ATTEND Hospitalist
DX: A41.9 Sepsis, unspecified organism (principal); C53.9 Malignant neoplasm of cervix uteri, unspecified; M51.36 Other intervertebral disc degeneration, lumbar region; N73.9 Female pelvic inflammatory disease, unspecified; Z90.5 Acquired absence of kidney; Z88.8 Allergy status to other drugs, medicaments and biological substances; Z91.041 Radiographic dye allergy status; Z92.3 Personal history of irradiation; Z92.21 Personal history of antineoplastic chemotherapy; Z86.718 Personal history of other venous thrombosis and embolism; Z87.891 Personal history of nicotine dependence
CPT/HCPCS: 36415; 76830; 80048; 80053; 81001; 83690; 83880; 85025; 85610; 87040; 87081; 87086; 96374; 96375; 96376; 99285; J0780; J1170; J1200; J1650; J2270; J2405; J2543; J2765; J7030; J7042; Q0092

== ENCOUNTER 2017-09-13 13:03 | Inpatient (IN) | payer OTHER ==
[~2017-09-13] VITALS: Ht 167.6 cm; Wt 64.0 kg
[~2017-09-13 13:03] MED LIST changes: -CLIN-187 PO; +DOXY100C12 PO
[2017-09-13 13:34] VITALS: BP 144/90
--- NOTE | 2017-09-13 14:03 | NUR ---
PATIENT AMBULATED TO BED 7.
--- NOTE | 2017-09-13 14:03 | NUR ---
PT AMBULATES WITH NORMAL GAIT TO ER BED 7
--- NOTE | 2017-09-13 14:20 | NUR ---
PT C/O POSSIBLE SZ-LIKE ACTIVIY YESTERDAY AT 1400, WITNESSED BY FAMILY. PER FAMILY, PTS EYES WERE OPEN AND ROLLING BACK IN HEAD, JAW CLENCHED, AND STIFF EXTREMITIES FOR APPROX 35 SECONDS. PT ALSO REPORTS ONE EPISODE OF N/V AFTER THE INCIDENT. DENIES TRUAMA. PT DENIES DIZZINESS OR SOB. HX: LEFT KIDNEY REMOVED DUE TO RADIATION THERAPY, IVC FILTER (LLE DVT), 3 BULDGING DISK, CERVICAL CA STAGE 4 SINCE 2001 IN REMISSION. RX: OXYCONTIN, DILAUDID
[2017-09-13 14:52] LABS: BASOPHILS % (AUTO) 0.2 % (0.0-2.0); EOSINOPHILS # (AUTO) 0.1 K/uL (0-0.4); EOSINOPHILS % (AUTO) 1.2 % (0.0-4.0); HEMATOCRIT 40.1 % (36-48); HEMOGLOBIN 13.2 g/dL (12.0-16.0); LYMPHOCYTES # (AUTO) 2.2 K/uL (2.5-16.5); LYMPHOCYTES % (AUTO) 28.8 % (20.5-51.1); MEAN CORPUSCULAR HEMOGLOBIN 30 pg (27-31); MEAN CORPUSCULAR HGB CONC 33 g/dL (33-37); MEAN CORPUSCULAR VOLUME 92.4 fL (80-94); MONOCYTES # (AUTO) 0.3 K/uL (0.8-1.0); MONOCYTES % (AUTO) 4.5 % (1.7-9.3); NEUTROPHILS # (AUTO) 5.1 K/uL (1.8-7.7); NEUTROPHILS % (AUTO) 65.3 % (42.2-75.2); PLATELET COUNT (AUTO) 217 K/uL (140-450); RED BLOOD CELL COUNT(AUTO) 4.34 MIL/uL (4.20-5.40); RED CELL DISTRIBUTION WIDTH 13.3 % (11.6-13.7); WHITE BLOOD COUNT (AUTO) 7.7 K/uL (4.8-10.8)
[2017-09-13 14:58] LABS: APPEARANCE,URINE CLEAR (CLEAR); BILIRUBIN,URINE NEGATIVE (NEGATIVE); BLOOD, URINE TRACE-L (NEGATIVE); COLOR,URINE YELLOW (YELLOW); LEUKOCYTE ESTERASE ,URINE TRACE (NEGATIVE); NITRITE, URINE NEGATIVE (NEGATIVE); PH,URINE 6.5 (5.0-9.0); UGLUCOSE NEGATIVE (NEGATIVE)
[2017-09-13 15:00] LABS: BARBITURATE, URINE NEG. ng/ml (NEG <=200); BENZODIAZEPINE, URINE NEG. ng/mL (NEG <=200); CANNABINOID, URINE POS. ng/mL (NEG <=50); COCAINE, URINE NEG. ng/mL (NEG <=300); OPIATE, URINE NEG. ng/mL (NEG <=2000); PHENCYCLIDINE SCREEN,URINE NEG. ng/mL (NEG <=25)
[2017-09-13 15:14] LABS: ANION GAP 12.6 (8-16); CARBON DIOXIDE 26.9 mmol/L (21-32); POTASSIUM 4.5 mmol/L (3.5-5.1)
[2017-09-13 15:21] LABS: TOTAL BILIRUBIN 0.6 mg/dL (0.0-1.0)
[2017-09-13 15:24] LABS: RBC,URINE 3-10 (FEW) /HPF (0-5)
--- NOTE | 2017-09-13 15:40 | NUR ---
PT RESTING IN BED IN NO APPARENT DISTRESS. WILL CONTINUE TO MONITOR
[2017-09-13] MEDS ORDERED: LORazepam 2 MG/ML VIAL IVP PRN (16:15)
[2017-09-13] MEDS ORDERED: oxyCODONE 10 MG TABER PO PRN (16:15)
[2017-09-13] MEDS ORDERED: ONDANSETRON 4 MG/2 ML VIAL IVP PRN (16:15)
[2017-09-13] MEDS ORDERED: ACETAMINOPHEN 325 MG TAB PO PRN (16:15)
--- NOTE | 2017-09-13 17:00 | NUR ---
Patient will be admitted to care of DR GLASGOW. Admited to TELE. Will go to room 111A. Belongings list completed. Report to MARIANELA VENTURA .
--- NOTE | 2017-09-13 17:00 | NUR ---
PATIENT ARRIVED ON FLOOR VIA GURNEY, PATIENT AMBULATED TO THE BED ON STEADY GAIT. REPORT RECEIVED FROM SENIOR NET APPLICATION DEVELOPER, LORENZO, AT BEDSIDE FOR CONTINUITY OF CARE. PATIENT AOX4, ABLE TO VERBALIZE NEED. IV SITE PATENT, ASYMPTOMATIC, AND INTACT. PATIENT DIAGNOSED WITH NEWLY ONSET SEIZURES. SON AT BEDSIDE. LUNGS CLEAR, BOWEL SOUNDS PRESENT, PATIENT REPORTS PAIN HEAD AND NECK 5/10. WILL ASSESS AND MEDICATE. ORIENTED PATIENT TO ROOM, CALL LIGHT, AND BATHROOM. MRSA SCREENING DONE, PATIENT CHANGED INTO GOWN AND SOCKS. INITIAL ASSESSMENT DONE. SAFETY AND SEIZURES PRECAUTION IN PLACE, CALL LIGHT WITHIN REACH. WILL CONTINUE TO MONITOR PATIENT.
[2017-09-13 17:50] VITALS: BP 120/70
[2017-09-13] MEDS: NACL 0.9% 1,000 ML IV SCH (18:07)
[2017-09-13] MEDS: MORPHINE SULFATE 2 MG/ML SYR IVP PRN ×2 (18:17→22:40)
--- NOTE | 2017-09-13 18:17 | NUR ---
MORPHINE PRN IVP ADMINISTERED FOR PAIN. WILL REASSESS. PATIENT NOW SITTING IN BED EATING DINNER. SAFETY AND SEIZURE PRECAUTION IN PLACE, CALL LIGHT WITHIN REACH. WILL CONTINUE TO MONITOR PATIENT.
--- NOTE | 2017-09-13 18:20 | NUR ---
NIKKO FROM CARDIOP[facility] CALLED. STAT ORDER OF EEG CANNOT BE PERFORMED TODAY, OUTSIDE GROUP DOES IT, THEY SAID THAT IT WILL BE DONE [id number] TOM[address]ROW ON 09/14/17. DR. GLASGOW PAGED. DR. CASTANEDA CLIENT REPRESENTATIVE. DR. CASTANEDA INFORMED.
--- NOTE | 2017-09-13 19:30 | NUR ---
REPORT GIVEN TO CERTIFIED NURSING ASSISTANT INSTRUCTOR NURSE AT BEDSIDE FOR CONTINUITY OF CARE. PATIENT IN STABLE CONDITION.
--- NOTE | 2017-09-13 19:30 | NUR ---
ASSUMED CARE OF PATIENT, STABLE CONDITION AND NO COMPLAINS. CALL LIGHT WITHIN REACH.
--- NOTE | 2017-09-13 20:00 | NUR ---
VITAL SIGNS STABLE. AFEBRILE. SEIZURE PRECAUTION NOTED, WITH PADDED SIDERAILS ON. CALL LIGHT WITHIN REACH. PLAN OF CARE DISCUSSED WITH PATIENT, VERBALIZED UNDERSTANDING WELL. CALL LIGHT WITHIN REACH.
[2017-09-13 20:07] VITALS: BP 104/68
[2017-09-13] MEDS: OXYCODONE PO SCH ×2 (20:33)
[2017-09-13] MEDS ORDERED: oxyCODONE 40 MG TABER PO SCH (21:00)
--- NOTE | 2017-09-14 | NUR ---
ASLEEP NO COMPLAINS. VITAL SIGNS STABLE. AFEBRILE. CALL LIGHT WITHIN REACH.
[2017-09-14 01:22] VITALS: BP 96/50
[2017-09-14 04:39] VITALS: BP 98/58
--- NOTE | 2017-09-14 04:40 | NUR ---
NO COMPLAINS. VITAL SIGNS STABLE. CALL LIGHT WITHIN REACH. ASLEEP.
[2017-09-14] MEDS: MORPHINE SULFATE 2 MG/ML SYR IVP PRN ×4 (04:49→22:42)
[2017-09-14] MEDS: NACL 0.9% 1,000 ML IV SCH ×2 (06:42→18:54)
--- NOTE | 2017-09-14 07:15 | NUR ---
ENDORSED CARE AT BEDSIDE WITH MARIANELA RN, PATIENT IN STABLE CONDITION.
--- NOTE | 2017-09-14 07:16 | NUR ---
RECEIVED REPORT FROM DETENTION SERGEANT NURSE AT BEDSIDE FOR CONTINUITY OF CARE. PATIENT AOX4, ABLE TO VERBALIZE NEED. IV SITE PATENT, ASYMPTOMATIC, AND INTACT INFUSING NS AT 75 ML/HR. PATIENT REPORTS PAIN HEAD AND NECK 08/25, WILL MEDICATE SCHEDULE PAIN MEDICATION. RESPIRATIONS EVEN AND UNLABORED. UPDATED BOARD. EXPLAINED PLAN OF CARE WITH PATIENT. PATIENT VERBALIZED UNDERSTANDING. SAFETY AND SEIZURES PRECAUTION IN PLACE, CALL LIGHT WITHIN REACH. WILL CONTINUE TO MONITOR PATIENT.
[2017-09-14 07:19] LABS: BASOPHILS % (AUTO) 0.4 % (0.0-2.0); EOSINOPHILS # (AUTO) 0.2 K/uL (0-0.4); EOSINOPHILS % (AUTO) 3.1 % (0.0-4.0); HEMATOCRIT 36.4 % (36-48); HEMOGLOBIN 11.9 g/dL (12.0-16.0); LYMPHOCYTES # (AUTO) 3.1 K/uL (2.5-16.5); LYMPHOCYTES % (AUTO) 48.4 % (20.5-51.1); MEAN CORPUSCULAR HEMOGLOBIN 30 pg (27-31); MEAN CORPUSCULAR HGB CONC 33 g/dL (33-37); MEAN CORPUSCULAR VOLUME 93.2 fL (80-94); MONOCYTES # (AUTO) 0.4 K/uL (0.8-1.0); MONOCYTES % (AUTO) 6.8 % (1.7-9.3); NEUTROPHILS # (AUTO) 2.6 K/uL (1.8-7.7); NEUTROPHILS % (AUTO) 41.3 % (42.2-75.2); PLATELET COUNT (AUTO) 194 K/uL (140-450); RED BLOOD CELL COUNT(AUTO) 3.91 MIL/uL (4.20-5.40); RED CELL DISTRIBUTION WIDTH 13.4 % (11.6-13.7); WHITE BLOOD COUNT (AUTO) 6.4 K/uL (4.8-10.8)
--- NOTE | 2017-09-14 07:45 | NUR ---
[facility] HERE TO DO EEG. WILL AWAIT FOR RESULTS.
[2017-09-14 08:00] VITALS: BP 101/59
[2017-09-14] MEDS ORDERED: oxyCODONE 40 MG TABER PO ONE (08:10)
[2017-09-14 08:20] LABS: ALBUMIN 3.3 g/dL (3.4-5.0); ANION GAP 12.9 (8-16); CREATININE 0.9 mg/dL (0.6-1.3); POTASSIUM 3.9 mmol/L (3.5-5.1)
[2017-09-14 08:36] LABS: TOTAL BILIRUBIN 0.3 mg/dL (0.0-1.0)
[2017-09-14] MEDS: OXYCODONE PO SCH ×4 (08:51→21:13)
[2017-09-14] MEDS: ENOXAPARIN 40 MG/0.4 ML SYR SUBQ SCH (08:54)
--- NOTE | 2017-09-14 08:55 | NUR ---
ORDERED MEDICATIONS ADMINISTERED. PATIENT TOLERATED THEM WELL. BREATHING EVEN AND UNLABORED. PATIENT MEDICATED FOR PAIN. SAFETY AND SEIZURE PRECAUTION IN PLACE, CALL LIGHT WITHIN REACH. WILL CONTINUE TO MONITOR PATIENT.
--- NOTE | 2017-09-14 09:22 | NUR ---
PATIENT HAS BEEN SCREENED AND CATEGORIZED LOW NUTRITION RISK. PATIENT WILL BE SEEN WITHIN 7 DAYS OF ADMISSION. 09/20/[address]
--- NOTE | 2017-09-14 10:35 | NUR ---
DR. GLASGOW IN TO SEE THE PATIENT. PATIENT REQUESTED IF SHE MAY SHOWER. NEW ORDERS IN. INFORMED PATIENT THAT SHE MAY SHOWER. PATIENT VERBALIZED UNDERSTANDING. SAFETY AND SEIZURE PRECAUTION IN PLACE, CALL LIGHT WITHIN REACH. WILL CONTINUE TO MONITOR PATIENT.
--- NOTE | 2017-09-14 10:36 | NUR ---
FAXED INITIAL REVIEW TO [facility] [place] [phone] PHONE KEITH [phone]
--- NOTE | 2017-09-14 11:45 | NUR ---
PATIENT OFF MONITOR TO GO SHOWER. PATIENT AMBULATED TO SHOWER ON STEADY GAIT. RN PROVIDED PATIENT WITH NEW GOWN, TOWELS, SHAMPOO AND LOTION.
[2017-09-14 12:00] VITALS: BP 99/60
--- NOTE | 2017-09-14 12:15 | NUR ---
PATIENT BACK ON MONITOR, PATIENT NOW RESTING IN BED, BREATHING EVEN AND UNLABORED. PATIENT DENIES PAIN. SAFETY PRECAUTIONS IN PLACE, BED ALARM ON, BED IN LOWEST POSITION, CALL LIGHT WITHIN REACH, WILL CONTINUE TO MONITOR PATIENT
--- NOTE | 2017-09-14 12:57 | NUR ---
PATIENT C/O PAIN 7/10 GENERALIZED PAIN. PRN MORPHINE ADMINISTERED. PATIENT TOLERATED IT WELL. PATIENT NOW RESTING IN BED, BREATHING EVEN AND UNLABORED. PATIENT DENIES PAIN. SAFETY PRECAUTIONS IN PLACE, BED ALARM ON, BED IN LOWEST POSITION, CALL LIGHT WITHIN REACH, WILL CONTINUE TO MONITOR PATIENT
--- NOTE | 2017-09-14 14:37 | NUR ---
DR. SANCHEZ IN TO SEE THE PATIENT. THE PATIENT WAS UPSET AFTER THE CONSOLATION AND IN TEARS ABOUT NEW DIAGNOSIS AND ABOUT NOTIFICATION TO DMV, AND NEW SEIZURE MEDICATIONS. RN EXPLAINED AT LENGTH TO PATIENT ABOUT SEIZURE MEDICATIONS, THEIR USE, AND THE DMV NOTIFICATION FOR PATIENT'S SAFETY. PATIENT VERBALIZED UNDERSTANDING AND CALMED DOWN. PATIENT STATED THAT SHE "WILL TRY TO REST NOW", BREATHING EVEN AND UNLABORED. PATIENT DENIES PAIN. SAFETY PRECAUTIONS IN PLACE, CALL LIGHT WITHIN REACH, WILL CONTINUE TO MONITOR PATIENT
[2017-09-14] MEDS ORDERED: OXcarbazepine 150 MG TAB PO SCH (15:15)
[2017-09-14 16:00] VITALS: BP 125/84
--- NOTE | 2017-09-14 16:14 | NUR ---
NEW MEDICATION ORDERS IN FROM DR. SANCHEZ. EDUCATION HANDOUT ABOUT TRIPLETAL GIVEN TO PATIENT FOR HER TO PERUSE. PATIENT VERBALIZED UNDERSTANDING. SHE IS HESITANT TO TAKE THE NEW MEDICATION BUT VERBALIZED UNDERSTANDING THAT IT WAS FOR HER NEWLY ONSET DX OF SEIZURES AND AFTER SPEAKING WITH HER FAMILY, AGREED TO TAKE IT. PATIENT NOW RESTING IN BED, BREATHING EVEN AND UNLABORED. PATIENT STATES THAT PAIN IS TOLERABLE AT THE MOMENT. SAFETY PRECAUTIONS IN PLACE, CALL LIGHT WITHIN REACH, WILL CONTINUE TO MONITOR PATIENT
--- NOTE | 2017-09-14 19:28 | NUR ---
PATIENT REPORT GIVEN TO UNIT TRUST MANAGER NURSE, KIRK, AT BEDSIDE FOR CONTINUITY OF CARE. PATIENT IN STABLE CONDITION.
--- NOTE | 2017-09-14 19:29 | NUR ---
PATIENT REPORT RECEIVED FROM MORNING NURSE AT BEDSIDE. PATIENT IS AWAKE, ALERT AND ORIENTED. AMBULATORY. NO SIGNS AND SYMPTOMS OF DISTRESS NOTED. PATIENT'S IV SITE IS ON THE LEFT ARM, IV INFUSING WELL. PLAN OF CARE DISCUSSED WITH PATIENT. PATIENT VERBALIZED UNDERSTANDING. BED IN LOWEST POSITION, SIDE RAILS UP AND CALL LIGHT WITHIN REACH. WILL CONTINUE TO MONITOR.
[2017-09-14 20:00] VITALS: BP 100/60
--- NOTE | 2017-09-14 21:00 | NUR ---
MEDICATION EDUCATION GIVEN. MEDS ADMINISTERED ORDERED. PATIENT TOLERATED WELL. WILL CONTINUE TO MONITOR.
[2017-09-14] MEDS: OXcarbazepine 150 MG TAB PO SCH (21:14)
[2017-09-15] VITALS: BP 104/65
--- NOTE | 2017-09-15 | NUR ---
PATIENT RESTING COMFORTABLY IN BED NO SIGNS AND SYMPTOMS OF DISTRESS NOTED. WILL CONTINUE TO MONITOR.
--- NOTE | 2017-09-15 01:59 | NUR ---
PATIENT REPORT GIVEN TO CHARGE NURSE CLAUDIA FOR CONTINUITY OF CARE. PATIENT IS IN STABLE CONDITION
--- NOTE | 2017-09-15 02:19 | NUR ---
RECEIVED REPORT OF PT.PT IS SLEEPING W/O S/S OF ANY DISTRESS.CALL LIGHT IN REACH.WILL CONTINUE MONITORING.
[2017-09-15] MEDS: MORPHINE SULFATE 2 MG/ML SYR IVP PRN ×3 (03:02→13:47)
[2017-09-15 04:00] VITALS: BP 109/62
--- NOTE | 2017-09-15 04:47 | NUR ---
PT IS AWAKE.NO C/O PAIN AT THIS TIME.IVF IS IN PROGRESS.WILL CONTINUE MONITORING.
--- NOTE | 2017-09-15 04:50 | NUR ---
HELPED HER TO GO TO BATHROOM.NO DIZZINESS.
--- NOTE | 2017-09-15 06:04 | NUR ---
SLEPT WELL.SHE DIDN'T HAVE SEIZURE AT NIGHT.HR IS SR.NO C/O PAIN OR DISCOMFORT AT PRESENT TIME.
--- NOTE | 2017-09-15 07:45 | NUR ---
REPORT GIVEN TO JARETH VENTURA.PT'S CONDITION IS STABLE.
--- NOTE | 2017-09-15 07:54 | NUR ---
INITIAL ASSESSMENT PERFORMED. VSS.PATIENT ALERT AND ABLE TO MAKE NEEDS KNOWN. NO ACUTE DISTRESS NOTED. RESP EVEN AND UNLABORED. PATIENT WITH REGULAR DIET.BOWEL SOUNDS ACTIVE X4 QUADS. LUNG SOUNDS CLEAR.PATIENT ABLE TO AMBULATE TO BATHROOM WITH ASSIST.PATIENT CONT ON SEIZURE PRECAUTIONS. PATIENT WITH NS @75ML/HR TO LFA 20G. PATIENT WITH SKIN INTACT. DISCUSSED PLAN OF CARE WITH PATIENT AT BEDSIDE. PATIENT VERBALIZED UNDERSTANDING AND AGREEMENT. BOARD UPDATED. CALL LIGHT WITHIN REACH. WILL CONT TO MONITOR.
[2017-09-15 08:00] VITALS: BP 114/58
[2017-09-15] MEDS: NACL 0.9% 1,000 ML IV SCH (08:14)
[2017-09-15] MEDS ORDERED: oxyCODONE 40 MG TABER PO ONE (09:19)
--- NOTE | 2017-09-15 09:23 | NUR ---
CALLED PHARMACY REGARDING INCOMPLETE DOSE OF OXYCODONE. UNABLE TO REMOVE 2 TABS OF 10MG OXYCODONE. INFORMED BY DEVELOPMENT SCIENTIST THAT THEY RECEIVED NEW INVENTORY AND THEY HAD TO INPUT IT IN THEIR SYSTEM BEFORE THEY COULD SEND IT TO UNIT. PATIENT MADE AWARE. PATIENT RECEIVED MORPHINE THIS AM AND STATED SHE IS CURRENTLY WITHOUT PAIN. WILL FOLLOW UP WITH PHARMACY.
[2017-09-15] MEDS: OXcarbazepine 150 MG TAB PO SCH (09:32)
[2017-09-15] MEDS: ENOXAPARIN 40 MG/0.4 ML SYR SUBQ SCH (09:45)
[2017-09-15] MEDS ORDERED: OXCA600T2 PO (10:12)
--- NOTE | 2017-09-15 10:15 | NUR ---
PATIENT HAD A SHOWER AND TOLERATED WELL. SPOKE TO SHINE WORKER AND WAS NOTIFIED THAT OXYCODONE WOULD BE SENT AND IT WAS ON ITS WAY.
[2017-09-15] MEDS ORDERED: oxyCODONE 10 MG TABER PO ONE (10:24)
[2017-09-15] MEDS: OXYCODONE PO SCH ×2 (10:24)
[2017-09-15 12:00] VITALS: BP 118/63
--- NOTE | 2017-09-15 12:30 | NUR ---
PATIENT NOTIFIED THAT SHE WOULD BE DISCHARGED AT 1500. PATIENT STATED UNDERSTANDING AND AGREEMENT. WILL CONT TO MONITOR.
--- NOTE | 2017-09-15 13:35 | NUR ---
[place] [facility] [phone]
--- NOTE | 2017-09-15 13:47 | NUR ---
ADMINISTERED MORPHINE ORDERED. PATIENT TOLERATED WELL.
--- NOTE | 2017-09-15 15:40 | NUR ---
DISCUSSED DISCHARGE PAPERWORK WITH PATIENT. PATIENT VERBALIZED UNDERSTANDING AND AGREEMENT. RX SCRIPTS GIVEN TO PATIENT AND DISCUSSED NEW MEDICATION REGIMEN. PATIENT STATED UNDERSTANDING AND AGREEMENT. ALL BELONGINGS IN PATIENT POSSESSION. IV SITE TO [facility] DC PATIENT TOLERATED WELL. LUMEN INTACT. ID BANDS REMOVE. PATIENT WAS ALREADY IN OWN CLOTHES. WALKED PATIENT TO FRONT LOBBY WITHOUT DIFFICULTIES PATIENT WITH SON AND FATHER IN PRIVATE VEHICLE.
[2017-09-16] MEDS ORDERED: OXcarbazepine 150 MG TAB PO SCH (09:00)
== END 2017-09-15 15:40 | disposition home or self-care (01) | DRG 100 ==
LOC: MED 13:03 → MTU 16:20
PROVIDERS: ADMIT Internal Medicine; ATTEND Internal Medicine
DX: G40.909 Epilepsy, unspecified, not intractable, without status epilepticus (principal); G93.41 Metabolic encephalopathy; F12.90 Cannabis use, unspecified, uncomplicated; Z85.41 Personal history of malignant neoplasm of cervix uteri; F41.9 Anxiety disorder, unspecified; Z86.718 Personal history of other venous thrombosis and embolism; Z88.8 Allergy status to other drugs, medicaments and biological substances; Z91.041 Radiographic dye allergy status; Z82.0 Family history of epilepsy and other diseases of the nervous system
CPT/HCPCS: 36415; 70450; 71045; 80053; 80305; 81001; 85025; 87081; 87086; 93005; 95816; 99285; J1650; J2270; J7030

== ENCOUNTER 2017-09-20 14:12 | Emergency (ER) | payer OTHER ==
[~2017-09-20] VITALS: Ht 165.1 cm; Wt 63.5 kg
[~2017-09-20 14:12] MED LIST changes: -DOXY100C12 PO; +OXCA600T2 PO
[2017-09-20 14:21] VITALS: BP 145/92
--- NOTE | 2017-09-20 14:27 | NUR ---
PT AMBULATES TO BED 11
--- NOTE | 2017-09-20 14:40 | NUR ---
PT. CAME INTO THE ED W C/O L LEG PAIN X 1 DAY. PT STATES " I HAD A BLOOD CLOT 7 YEARS AGO AND I HAVE SUFFERED FROM CELLULITIS ON THIS SAME LEG BEFORE, IT STARTED YESTERDAY ITS FROM MY GROIN TO MY KNEE AND ALSO IM GETTING SWOLLEN ON MY ANKLE". PT. AAOX4, RR EVEN AND UNLABORED, PT. HAS 7/10 PAIN ON L LEG THAT IS DESCRIBED SHARP AND BURNING FROM GROIN TO L KNEE. PT. HAS L ANKLE EDEMA 2+ PITTING. PT. DENIES N/V/D. DENIES SOB, DENIES CHEST PAIN. UPON PALPATION OF LEG IT IS SENSATIVE TO THE TOUCH. FAMILY MEMBER AT BEDSIDE. WILL CONTINUE TO MONITOR
--- NOTE | 2017-09-20 14:45 | NUR ---
ULTRASOUND AT BEDSIDE.
[2017-09-20] MEDS ORDERED: KETOROLAC 30 MG/ML VIAL IVP ONE (14:55)
--- NOTE | 2017-09-20 15:30 | NUR ---
pt. resting comfortbaly in bed , rr even and unlabored, son at bedside. will continue to monitor.
[2017-09-20 15:35] LABS: BASOPHILS % (AUTO) 0.5 % (0.0-2.0); EOSINOPHILS # (AUTO) 0.1 K/uL (0-0.4); HEMATOCRIT 36.6 % (36-48); LYMPHOCYTES # (AUTO) 1.9 K/uL (2.5-16.5); LYMPHOCYTES % (AUTO) 37.5 % (20.5-51.1); MEAN CORPUSCULAR HEMOGLOBIN 30 pg (27-31); MEAN CORPUSCULAR HGB CONC 33 g/dL (33-37); MEAN CORPUSCULAR VOLUME 92.2 fL (80-94); MONOCYTES # (AUTO) 0.3 K/uL (0.8-1.0); MONOCYTES % (AUTO) 4.9 % (1.7-9.3); NEUTROPHILS # (AUTO) 2.9 K/uL (1.8-7.7); NEUTROPHILS % (AUTO) 55.1 % (42.2-75.2); PLATELET COUNT (AUTO) 195 K/uL (140-450); RED BLOOD CELL COUNT(AUTO) 3.97 MIL/uL (4.20-5.40); RED CELL DISTRIBUTION WIDTH 13.4 % (11.6-13.7); WHITE BLOOD COUNT (AUTO) 5.2 K/uL (4.8-10.8)
[2017-09-20 15:51] LABS: ANION GAP 9.4 (8-16); CARBON DIOXIDE 28.2 mmol/L (21-32); CREATININE 0.9 mg/dL (0.6-1.3); POTASSIUM 3.6 mmol/L (3.5-5.1)
[2017-09-20 15:57] LABS: ALBUMIN 3.5 g/dL (3.4-5.0); TOTAL BILIRUBIN 0.2 mg/dL (0.0-1.0)
[2017-09-20 16:01] LABS: PROTHROMBIN TIME 10.4 secs (10.8-13.4)
[2017-09-20] MEDS ORDERED: MORPHINE SULFATE 2 MG/ML SYR IVP ONE (16:05)
[2017-09-20] MEDS ORDERED: METOCLOPRAMIDE 10 MG/2 ML INJ VIAL IVP ONE (16:05)
[2017-09-20 16:07] LABS: APPEARANCE,URINE CLEAR (CLEAR); BILIRUBIN,URINE NEGATIVE (NEGATIVE); BLOOD, URINE TRACE-I (NEGATIVE); COLOR,URINE YELLOW (YELLOW); LEUKOCYTE ESTERASE ,URINE NEGATIVE (NEGATIVE); NITRITE, URINE NEGATIVE (NEGATIVE); UGLUCOSE NEGATIVE (NEGATIVE)
[2017-09-20 16:22] LABS: RBC,URINE 3-10 (FEW) /HPF (0-5); WBC,URINE 0-5 (RARE) /HPF (0-5)
[2017-09-20 16:53] VITALS: BP 140/86
--- NOTE | 2017-09-20 16:53 | NUR ---
Patient discharged with v/s stable. Written and verbal after care instructions given and explained. Patient verbalized understanding. Ambulatory with steady gait. All questions addressed prior to discharge. Advised to follow up with PMD.
== END 2017-09-20 16:53 | disposition home or self-care (01) ==
LOC: MED 14:12
DX: M79.1 Myalgia (principal); M79.662 Pain in left lower leg; R60.0 Localized edema; Z85.41 Personal history of malignant neoplasm of cervix uteri; Z79.899 Other long term (current) drug therapy; Z88.8 Allergy status to other drugs, medicaments and biological substances
CPT/HCPCS: 36415; 80053; 81001; 81025; 83605; 85025; 85610; 85730; 87040; 93971; 96374; 96375; 99285; J1885; J2270; J2765; Q0092